=== PATIENT | female | born 1940 | race Caucasian/White ===

== ENCOUNTER 2021-06-01 08:14 | Inpatient (IN) | payer MEDICARE ==
[2021-06-01] MEDS ORDERED: Ondansetron PF 4 MG/2 ML Vial IVP PRN (12:55)
[2021-06-01] MEDS ORDERED: Acetaminophen 650 MG Suppository PR PRN (12:55)
[2021-06-01] MEDS ORDERED: Senokot S 8.6-50 MG TAB PO PRN (12:55)
[2021-06-01] MEDS ORDERED: Ondansetron ODT 4 MG TAB PO PRN (12:55)
[2021-06-01] MEDS ORDERED: Acetaminophen 325 MG TAB PO PRN (12:55)
[2021-06-01] MEDS ORDERED: tiZANidine HCl 4 MG TAB PO PRN (12:58)
[2021-06-01] MEDS ORDERED: traMADol HCl 50 MG TAB PO PRN (12:58)
[2021-06-01] MEDS ORDERED: HYDROcodone/Acetaminophen 5/325 mg Tablet PO PRN (13:00)
[2021-06-01 13:12] LABS: #Basophils 0.1 10x3/uL (0.0-0.2); #Eosinphils 0.3 10x3/uL (0.0-0.5); #Monocytes 0.8 10x3/uL (0.0-1.1); #Neutrophils 5.9 10x3/uL (1.5-8.4); %Basophils 0.7 % (0.0-2.0); %Eosinophils 3.4 % (0.0-6.0); %Lymphocytes 14.6 % (18.0-47.0); %Monocytes 9.1 % (0.0-10.0); %Neutrophils 71.7 % (40.0-75.0); Hemoglobin 12.6 g/dL (12.0-15.5); Mean Corpuscular HGB CONC 32.6 g/dL (32.0-36.0); Mean Corpuscular Hemoglobin 29.9 pg (27.0-33.0); Mean Corpuscular Volume 91.7 fl (81.6-98.3); Mean Platelet Volume 10.3 fl (7.4-10.4); Platelet Count 218 10x3/uL (150-450); RBC Distribution Width 20.8 % (11.5-14.5); Red Blood Cell (RBC) Count 4.21 10x6/uL (3.90-5.03); White Blood Cell (WBC) Count 8.2 10x3/uL (3.5-10.5)
[2021-06-01 13:45] LABS: Anion Gap 14 mmol/L (10-20); BUN (Urea Nitrogen) 20 mg/dL (9.8-20.1); Calc. Creatinine Clearance 0 mL/min (70-130); Calcium 9.4 mg/dL (7.8-10.44); Carbon Dioxide 31 mmol/L (23-31); Chloride 101 mmol/L (98-107); Glucose 91 mg/dL (83-110); Sodium 143 mmol/L (136-145)
[2021-06-01 13:55] LABS: Potassium 2.9 mmol/L (3.5-5.1)
[2021-06-01] MEDS ORDERED: Potassium Chloride 20 MEQ TAB PO SCH (14:15)
[2021-06-01] MEDS ORDERED: Potassium Chloride 10 MEQ in Premix Bag 1 BAG IVPB SCH ×2 (14:15→14:45)
[2021-06-01] MEDS ORDERED: Potassium Chloride 20 MEQ in Premix Bag 1 BAG IVPB SCH (15:00)
[2021-06-01] MEDS: hydrALAZINE 25 MG TAB PO SCH ×2 (15:25→21:11)
[2021-06-01] MEDS: HYDROcodone/Acetaminophen 5/325 mg Tablet PO PRN ×2 (15:26→21:08)
[2021-06-01 15:33] VITALS: BMI 26.7
[2021-06-01] MEDS: traMADol HCl 50 MG TAB PO SCH (18:00)
[2021-06-01] MEDS: Citalopram 20 MG TAB PO SCH (21:08)
[2021-06-01] MEDS: Senokot 8.6 MG TAB PO SCH (21:09)
[2021-06-01] MEDS: Docusate 100 MG CAP PO SCH (21:09)
[2021-06-01] MEDS: Gabapentin 300 MG CAP PO SCH (21:09)
[2021-06-02] MEDS: traMADol HCl 50 MG TAB PO SCH ×4 (01:07→20:32)
[2021-06-02 04:23] LABS: #Basophils 0.1 10x3/uL (0.0-0.2); #Eosinphils 0.4 10x3/uL (0.0-0.5); #Monocytes 0.6 10x3/uL (0.0-1.1); #Neutrophils 3.3 10x3/uL (1.5-8.4); %Basophils 0.9 % (0.0-2.0); %Eosinophils 7.2 % (0.0-6.0); %Lymphocytes 24.1 % (18.0-47.0); %Monocytes 10.7 % (0.0-10.0); %Neutrophils 56.9 % (40.0-75.0); Hemoglobin 11.9 g/dL (12.0-15.5); Mean Corpuscular Hemoglobin 30.1 pg (27.0-33.0); Mean Corpuscular Volume 93.9 fl (81.6-98.3); Mean Platelet Volume 10.3 fl (7.4-10.4); Platelet Count 200 10x3/uL (150-450); RBC Distribution Width 20.8 % (11.5-14.5); Red Blood Cell (RBC) Count 3.96 10x6/uL (3.90-5.03); White Blood Cell (WBC) Count 5.7 10x3/uL (3.5-10.5)
[2021-06-02 04:40] LABS: Anion Gap 13 mmol/L (10-20); BUN (Urea Nitrogen) 18 mg/dL (9.8-20.1); Calc. Creatinine Clearance 58 mL/min (70-130); Calcium 9.1 mg/dL (7.8-10.44); Carbon Dioxide 29 mmol/L (23-31); Chloride 103 mmol/L (98-107); Glucose 98 mg/dL (83-110); Potassium 3.5 mmol/L (3.5-5.1); Sodium 141 mmol/L (136-145)
[2021-06-02] MEDS: Levothyroxine Sodium 75 MCG TAB PO SCH (07:10)
[2021-06-02] MEDS: Ferrous Sulfate 325 MG TAB PO SCH (08:37)
[2021-06-02] MEDS: Docusate 100 MG CAP PO SCH ×2 (08:38→20:30)
[2021-06-02] MEDS: Senokot 8.6 MG TAB PO SCH ×2 (08:38→20:31)
[2021-06-02] MEDS: hydrALAZINE 25 MG TAB PO SCH ×3 (08:39→20:33)
[2021-06-02] MEDS: Cholecalciferol 1,000 UNITS (25 MCG) TAB PO SCH (08:40)
[2021-06-02] MEDS: Furosemide 20 MG TAB PO SCH (08:40)
[2021-06-02] MEDS: Saccharomyces boulardii 250 MG CAP PO SCH (08:41)
[2021-06-02] MEDS: Gabapentin 300 MG CAP PO SCH ×2 (08:41→20:32)
[2021-06-02] MEDS: Polyethylene Glycol 3350 17 GM Packet PO SCH (08:42)
[2021-06-02] MEDS ORDERED: traMADol HCl 50 MG TAB PO SCH (18:00)
[2021-06-02 19:02] LABS: SARS-CoV-2 PCR by NAA Not Detected (NotDetected)
[2021-06-02] MEDS: Citalopram 20 MG TAB PO SCH (20:31)
[2021-06-03] MEDS: traMADol HCl 50 MG TAB PO SCH ×4 (05:27→22:02)
[2021-06-03] MEDS: Levothyroxine Sodium 75 MCG TAB PO SCH (05:49)
[2021-06-03] MEDS ORDERED: EPINEPHrine 1 MG/ML AMP ONE ×2 (06:57→10:36)
[2021-06-03] MEDS ORDERED: Bupivacaine PF 0.5% 30 ML VIAL ONE (06:57)
[2021-06-03] MEDS ORDERED: Fentanyl 100 MCG/2 ML VIAL ONE ×2 (06:58→10:17)
[2021-06-03] MEDS ORDERED: Dexamethasone 4 mg/ml Vial ONE (06:58)
[2021-06-03] MEDS ORDERED: Rocuronium Bromide 10 MG/ML (10ML VIAL) ONE (06:58)
[2021-06-03] MEDS ORDERED: Ondansetron PF 4 MG/2 ML Vial ONE (06:58)
[2021-06-03] MEDS ORDERED: Neomycin-Polymyxin 1 ML AMP ONE (06:58)
[2021-06-03] MEDS ORDERED: PROPOFOL 20 ML ONE (06:58)
[2021-06-03] MEDS ORDERED: ceFAZolin 2 GM/Dextrose 50 ML IVPB ONE (07:12)
[2021-06-03] MEDS ORDERED: Lidocaine 2% PF 5 ML VIAL ONE (07:22)
[2021-06-03] MEDS ORDERED: HYDROcodone/Acetaminophen 10/325 mg Tablet PO PRN (07:36)
[2021-06-03] MEDS ORDERED: Morphine 4 MG/ML VIAL SLOW IVP PRN (07:36)
[2021-06-03] MEDS ORDERED: Zolpidem Tartrate 5 MG TAB PO PRN (07:36)
[2021-06-03] MEDS ORDERED: Tranexamic Acid 1,000 MG in Sodium Chloride 0.9% 100 ML IVPB SCH (07:45)
[2021-06-03] MEDS ORDERED: Tranexamic Acid 1,000 MG/10 ML VIAL ONE ×2 (08:06→10:02)
[2021-06-03] MEDS ORDERED: ePHEDrine Sulfate 50 MG/10 ML VIAL ONE (08:08)
[2021-06-03] MEDS ORDERED: Glycopyrrolate 0.2 MG/ML 5 ML SYRINGE ONE (09:36)
[2021-06-03] MEDS ORDERED: Ketorolac Tromethamine 30 MG/ML VIAL ONE (09:36)
[2021-06-03] MEDS ORDERED: Lidocaine 1% PF 5 ML VIAL ONE (10:35)
[2021-06-03] MEDS ORDERED: Bupivacaine 0.25% HCL 30 ML VIAL ONE (10:36)
[2021-06-03] MEDS: Morphine 2 MG/ML VIAL SLOW IVP PRN ×2 (12:17→15:13)
[2021-06-03] MEDS: ceFAZolin 2 GM/Dextrose 50 ML 2 GM in Premix Bag 1 BAG IVPB SCH ×2 (15:24→22:14)
[2021-06-03] MEDS: Dextrose 5 %-0.45 % NaCl 1,000 ML IV SCH (15:27)
[2021-06-03] MEDS ORDERED: Chloraseptic Spray 180 ml Bottle PO PRN (16:12)
[2021-06-03] MEDS: Aspirin 81 mg Enteric Coated Tablet PO SCH ×2 (16:19→22:02)
[2021-06-03] MEDS: Cholecalciferol 1,000 UNITS (25 MCG) TAB PO SCH (16:19)
[2021-06-03] MEDS: Furosemide 20 MG TAB PO SCH (16:19)
[2021-06-03] MEDS: Ferrous Sulfate 325 MG TAB PO SCH (16:19)
[2021-06-03] MEDS: Docusate 100 MG CAP PO SCH ×2 (16:19→22:15)
[2021-06-03] MEDS: Gabapentin 300 MG CAP PO SCH ×2 (16:20→22:15)
[2021-06-03] MEDS: Polyethylene Glycol 3350 17 GM Packet PO SCH (16:21)
[2021-06-03] MEDS: hydrALAZINE 25 MG TAB PO SCH ×2 (16:21→22:16)
[2021-06-03] MEDS: Senokot 8.6 MG TAB PO SCH ×2 (16:22→22:16)
[2021-06-03] MEDS: Saccharomyces boulardii 250 MG CAP PO SCH (16:22)
[2021-06-03] MEDS: Citalopram 20 MG TAB PO SCH (22:03)
[2021-06-04] MEDS: traMADol HCl 50 MG TAB PO SCH ×4 (03:34→20:49)
[2021-06-04] MEDS: Dextrose 5 %-0.45 % NaCl 1,000 ML IV SCH ×4 (03:35→23:58)
[2021-06-04 05:27] LABS: Hemoglobin 10.5 g/dL (12.0-15.5); Mean Corpuscular HGB CONC 31.4 g/dL (32.0-36.0); Mean Corpuscular Hemoglobin 29.7 pg (27.0-33.0); Mean Corpuscular Volume 94.4 fl (81.6-98.3); Mean Platelet Volume 11.1 fl (7.4-10.4); Platelet Count 196 10x3/uL (150-450); RBC Distribution Width 19.9 % (11.5-14.5); Red Blood Cell (RBC) Count 3.54 10x6/uL (3.90-5.03); White Blood Cell (WBC) Count 7.6 10x3/uL (3.5-10.5)
[2021-06-04 05:35] LABS: Anion Gap 13 mmol/L (10-20); BUN (Urea Nitrogen) 16 mg/dL (9.8-20.1); Calc. Creatinine Clearance 57 mL/min (70-130); Calcium 8.9 mg/dL (7.8-10.44); Carbon Dioxide 30 mmol/L (23-31); Chloride 98 mmol/L (98-107); Glucose 112 mg/dL (83-110); Sodium 137 mmol/L (136-145)
[2021-06-04] MEDS: Levothyroxine Sodium 75 MCG TAB PO SCH (06:34)
[2021-06-04] MEDS: Morphine 2 MG/ML VIAL SLOW IVP PRN (06:35)
[2021-06-04] MEDS: Docusate 100 MG CAP PO SCH ×2 (08:35→20:48)
[2021-06-04] MEDS: Aspirin 81 mg Enteric Coated Tablet PO SCH ×2 (08:36→20:48)
[2021-06-04] MEDS: Senokot 8.6 MG TAB PO SCH ×2 (08:36→20:49)
[2021-06-04] MEDS: Furosemide 20 MG TAB PO SCH (08:37)
[2021-06-04] MEDS: Saccharomyces boulardii 250 MG CAP PO SCH (08:37)
[2021-06-04] MEDS: Gabapentin 300 MG CAP PO SCH ×2 (08:37→20:48)
[2021-06-04] MEDS: Ferrous Sulfate 325 MG TAB PO SCH (08:37)
[2021-06-04] MEDS: Cholecalciferol 1,000 UNITS (25 MCG) TAB PO SCH (08:37)
[2021-06-04] MEDS: Polyethylene Glycol 3350 17 GM Packet PO SCH (08:43)
[2021-06-04] MEDS: hydrALAZINE 25 MG TAB PO SCH ×3 (08:43→20:50)
[2021-06-04] MEDS: HYDROcodone/Acetaminophen 10/325 mg Tablet PO PRN (15:51)
[2021-06-04] MEDS: Chloraseptic Spray 180 ml Bottle PO SCH ×2 (15:51→20:47)
[2021-06-04] MEDS: Citalopram 20 MG TAB PO SCH (20:48)
[2021-06-05] MEDS: traMADol HCl 50 MG TAB PO SCH ×4 (02:42→21:20)
[2021-06-05 05:36] LABS: Hemoglobin 10.9 g/dL (12.0-15.5); Mean Corpuscular HGB CONC 32.3 g/dL (32.0-36.0); Mean Corpuscular Hemoglobin 30.5 pg (27.0-33.0); Mean Corpuscular Volume 94.4 fl (81.6-98.3); Mean Platelet Volume 11.3 fl (7.4-10.4); Platelet Count 180 10x3/uL (150-450); Red Blood Cell (RBC) Count 3.57 10x6/uL (3.90-5.03); White Blood Cell (WBC) Count 7.8 10x3/uL (3.5-10.5)
[2021-06-05] MEDS: Levothyroxine Sodium 75 MCG TAB PO SCH (06:12)
[2021-06-05] MEDS: Furosemide 20 MG TAB PO SCH (09:56)
[2021-06-05] MEDS: Ferrous Sulfate 325 MG TAB PO SCH (09:56)
[2021-06-05] MEDS: Cholecalciferol 1,000 UNITS (25 MCG) TAB PO SCH (09:57)
[2021-06-05] MEDS: Docusate 100 MG CAP PO SCH ×2 (09:57→21:18)
[2021-06-05] MEDS: Aspirin 81 mg Enteric Coated Tablet PO SCH ×2 (09:57→21:18)
[2021-06-05] MEDS: hydrALAZINE 25 MG TAB PO SCH ×3 (10:02→21:20)
[2021-06-05] MEDS: Gabapentin 300 MG CAP PO SCH ×2 (10:06→21:21)
[2021-06-05] MEDS: Senokot 8.6 MG TAB PO SCH ×2 (10:32→21:18)
[2021-06-05] MEDS: Saccharomyces boulardii 250 MG CAP PO SCH (10:32)
[2021-06-05] MEDS: Dextrose 5 %-0.45 % NaCl 1,000 ML IV SCH ×2 (11:05→23:00)
[2021-06-05] MEDS: Polyethylene Glycol 3350 17 GM Packet PO SCH (11:05)
[2021-06-05] MEDS: Chloraseptic Spray 180 ml Bottle PO SCH ×3 (11:05→23:02)
[2021-06-05] MEDS: Citalopram 20 MG TAB PO SCH (21:18)
[2021-06-06] MEDS: traMADol HCl 50 MG TAB PO SCH ×4 (03:35→21:16)
[2021-06-06] MEDS: Dextrose 5 %-0.45 % NaCl 1,000 ML IV SCH ×2 (04:34→18:38)
[2021-06-06] MEDS: Levothyroxine Sodium 75 MCG TAB PO SCH (05:54)
[2021-06-06] MEDS: Ferrous Sulfate 325 MG TAB PO SCH (09:00)
[2021-06-06] MEDS: HYDROcodone/Acetaminophen 10/325 mg Tablet PO PRN ×2 (09:00→13:21)
[2021-06-06] MEDS: Docusate 100 MG CAP PO SCH ×2 (09:02→21:16)
[2021-06-06] MEDS: Cholecalciferol 1,000 UNITS (25 MCG) TAB PO SCH (09:02)
[2021-06-06] MEDS: Chloraseptic Spray 180 ml Bottle PO SCH ×3 (09:03→21:15)
[2021-06-06] MEDS: hydrALAZINE 25 MG TAB PO SCH ×3 (09:03→18:35)
[2021-06-06] MEDS: Aspirin 81 mg Enteric Coated Tablet PO SCH ×2 (09:03→21:16)
[2021-06-06] MEDS: Furosemide 20 MG TAB PO SCH (09:04)
[2021-06-06] MEDS: Saccharomyces boulardii 250 MG CAP PO SCH (09:04)
[2021-06-06] MEDS: Gabapentin 300 MG CAP PO SCH ×2 (09:08→21:16)
[2021-06-06] MEDS: Senokot 8.6 MG TAB PO SCH ×2 (11:54→21:15)
[2021-06-06] MEDS: Polyethylene Glycol 3350 17 GM Packet PO SCH (11:54)
[2021-06-06] MEDS: Citalopram 20 MG TAB PO SCH (21:16)
[2021-06-07] MEDS: hydrALAZINE 25 MG TAB PO SCH ×4 (01:33→21:09)
[2021-06-07] MEDS: Dextrose 5 %-0.45 % NaCl 1,000 ML IV SCH ×3 (01:41→23:33)
[2021-06-07] MEDS: traMADol HCl 50 MG TAB PO SCH ×4 (03:47→21:09)
[2021-06-07] MEDS: Levothyroxine Sodium 75 MCG TAB PO SCH (05:29)
[2021-06-07] MEDS: Docusate 100 MG CAP PO SCH ×2 (10:34→21:09)
[2021-06-07] MEDS: Aspirin 81 mg Enteric Coated Tablet PO SCH ×2 (10:34→21:08)
[2021-06-07] MEDS: Cholecalciferol 1,000 UNITS (25 MCG) TAB PO SCH (10:34)
[2021-06-07] MEDS: Gabapentin 300 MG CAP PO SCH ×2 (10:34→21:10)
[2021-06-07] MEDS: Furosemide 20 MG TAB PO SCH (10:34)
[2021-06-07] MEDS: Ferrous Sulfate 325 MG TAB PO SCH (10:34)
[2021-06-07] MEDS: Saccharomyces boulardii 250 MG CAP PO SCH (10:36)
[2021-06-07] MEDS: Polyethylene Glycol 3350 17 GM Packet PO SCH (10:36)
[2021-06-07] MEDS: Senokot 8.6 MG TAB PO SCH ×2 (10:36→21:08)
[2021-06-07] MEDS: Chloraseptic Spray 180 ml Bottle PO SCH ×3 (10:36→21:11)
[2021-06-07] MEDS: HYDROcodone/Acetaminophen 10/325 mg Tablet PO PRN (13:09)
[2021-06-07] MEDS: Citalopram 20 MG TAB PO SCH (21:09)
[2021-06-08] MEDS: traMADol HCl 50 MG TAB PO SCH ×3 (02:04→14:12)
[2021-06-08] MEDS: Levothyroxine Sodium 75 MCG TAB PO SCH (05:30)
[2021-06-08] MEDS: HYDROcodone/Acetaminophen 10/325 mg Tablet PO PRN ×2 (05:47→17:37)
[2021-06-08] MEDS: Dextrose 5 %-0.45 % NaCl 1,000 ML IV SCH ×2 (09:10→15:53)
[2021-06-08] MEDS: Cholecalciferol 1,000 UNITS (25 MCG) TAB PO SCH (09:12)
[2021-06-08] MEDS: Ferrous Sulfate 325 MG TAB PO SCH (09:12)
[2021-06-08] MEDS: Aspirin 81 mg Enteric Coated Tablet PO SCH (09:12)
[2021-06-08] MEDS: Docusate 100 MG CAP PO SCH (09:13)
[2021-06-08] MEDS: Gabapentin 300 MG CAP PO SCH (09:13)
[2021-06-08] MEDS: Furosemide 20 MG TAB PO SCH (09:13)
[2021-06-08] MEDS: Senokot 8.6 MG TAB PO SCH (09:14)
[2021-06-08] MEDS: Polyethylene Glycol 3350 17 GM Packet PO SCH (09:14)
[2021-06-08] MEDS: Saccharomyces boulardii 250 MG CAP PO SCH (09:14)
[2021-06-08] MEDS: hydrALAZINE 25 MG TAB PO SCH ×2 (09:15→14:16)
[2021-06-08] MEDS: Chloraseptic Spray 180 ml Bottle PO SCH ×2 (09:25→14:17)
[2021-06-08 17:39] VITALS: BP 118/70; TEMP 96.8
== END 2021-06-08 17:25 | DRG 470 ==
LOC: CSHTELE 08:14
PROVIDERS: ADMIT Orthopaedic Surgery; ATTEND Orthopaedic Surgery
PROC: 0QP704Z Removal of Internal Fixation Device from Left Upper Femur, Open Approach (ICD-10-PCS; principal; 2021-06-03)
PROC: 0SRS01Z Replacement of Left Hip Joint, Femoral Surface with Metal Synthetic Substitute, Open Approach (ICD-10-PCS; 2021-06-03)
DX: T84.125A Displacement of internal fixation device of left femur, initial encounter (principal); I48.20 Chronic atrial fibrillation, unspecified; I10 Essential (primary) hypertension; D50.0 Iron deficiency anemia secondary to blood loss (chronic); K57.90 Diverticulosis of intestine, part unspecified, without perforation or abscess without bleeding; E03.9 Hypothyroidism, unspecified; F41.9 Anxiety disorder, unspecified; G89.29 Other chronic pain; M54.9 Dorsalgia, unspecified; M79.7 Fibromyalgia; K27.9 Peptic ulcer, site unspecified, unspecified as acute or chronic, without hemorrhage or perforation; K21.9 Gastro-esophageal reflux disease without esophagitis; E87.5 Hyperkalemia; Z60.2 Problems related to living alone; E87.6 Hypokalemia; Z20.822 Contact with and (suspected) exposure to COVID-19; Z90.49 Acquired absence of other specified parts of digestive tract; Z98.890 Other specified postprocedural states; Z98.51 Tubal ligation status; Z79.82 Long term (current) use of aspirin
CPT/HCPCS: 36415; 71045; 80048; 85025; 85027; 93005; 93010; 94760; C1776; J0171; J0690; J1100; J1885; J2001; J2270; J2405; J2704; J3010; J3480; J7042; S0020; U0003; U0005